=== PATIENT | female | born 1965 | race Caucasian/White ===

== ENCOUNTER 2016-08-17 10:14 | Emergency (ER) | payer MEDICAID, MEDICARE ==
[~2016-08-17] VITALS: Ht 162.6 cm; Wt 75.7 kg
[~2016-08-17 10:14] MED LIST: BISA10SU65 PR; DOXE50CA PO; HYDR50CA2 PO; NITR100C6 PO; OLAN5TAB9 PO; PANT40TA5 PO; POLY17PO5 PO; TRAZ50TA18 PO
[2016-08-17 11:30] LABS: BLOOD UREA NITROGEN 12 mg/dL (7-18)
[2016-08-17 11:34] LABS: ASPARTATE AMINO TRANSFERASE 12 U/L (15-37)
[2016-08-17 12:15] VITALS: BP 117/81
== END 2016-08-17 12:18 | disposition home or self-care (01) ==
LOC: ED 11:50
DX: R10.13 Epigastric pain (principal); F17.210 Nicotine dependence, cigarettes, uncomplicated; F31.9 Bipolar disorder, unspecified
CPT/HCPCS: 36415; 76700; 80053; 81001; 83690; 85025; 87086

== ENCOUNTER 2016-09-04 03:37 | Observation (INO) | payer MEDICARE ==
[~2016-09-04] VITALS: Ht 162.6 cm; Wt 71.0 kg
[2016-09-04 04:53] LABS: DAU SCREEN DISCLAIMER
[2016-09-04 05:09] LABS: ASPARTATE AMINO TRANSFERASE 17 U/L (15-37); BLOOD UREA NITROGEN 9 mg/dL (7-18)
[2016-09-04 05:12] LABS: ACETAMINOPHEN < 2 mcg/mL (10-30)
[2016-09-04] MEDS ORDERED: POTASSIUM CHLORIDE 20 MEQ TAB.ER.PRT PO ONE (07:00)
[2016-09-04] MEDS ORDERED: POTASSIUM CHLORIDE 20 MEQ TAB.ER.PRT ONE (07:20)
[2016-09-04] MEDS ORDERED: ONDANSETRON ODT 4 MG PO PRN (07:30)
[2016-09-04] MEDS ORDERED: POLYETHYLENE GLYCOL 17 GM PACKET PO PRN (07:30)
[2016-09-04] MEDS ORDERED: LORazepam 1MG TABLET PO PRN (07:30)
[2016-09-04] MEDS ORDERED: DOCUSATE 100 MG CAPSULE PO PRN (07:30)
[2016-09-04] MEDS ORDERED: BISACODYL 10 MG SUPP PR PRN (07:30)
[2016-09-04 07:45] VITALS: BP 107/71
[2016-09-04 10:17] LABS: HCG UR OBC PASS
[2016-09-04 10:19] LABS: PATH.CAST-FLAG NOT PRESENT; SPERM-FLAG NOT PRESENT; SRC-FLAG NOT PRESENT; XTAL-FLAG NOT PRESENT; YLC-FLAG NOT PRESENT
[2016-09-04] MEDS: ACETAMINOPHEN 325 MG TABLET PO PRN ×2 (11:21→21:13)
[2016-09-04] MEDS ORDERED: GUAIFENESIN/DM 200-20MG, 10ML UDC PO PRN (12:00)
[2016-09-04] MEDS: DOXYCYCLINE 100MG TABLET PO SCH ×2 (13:57→21:09)
[2016-09-04] MEDS: BENZONATATE 100 MG CAPSULE PO SCH ×3 (13:57→21:09)
[2016-09-04 19:54] VITALS: BP 101/64
[2016-09-04] MEDS ORDERED: OLANZAPINE 5 MG TABLET PO SCH (21:00)
[2016-09-05 08:20] VITALS: BP 100/66
[2016-09-05] MEDS: BENZONATATE 100 MG CAPSULE PO SCH (09:00)
[2016-09-05] MEDS ORDERED: CEFDINIR 300 MG CAPSULE PO SCH (09:00)
[2016-09-05] MEDS: DOXYCYCLINE 100MG TABLET PO SCH (09:00)
[2016-09-05] MEDS ORDERED: BENZ100C4 PO (12:51)
[2016-09-05] MEDS ORDERED: GUAI5SYR PO (12:51)
[2016-09-05] MEDS ORDERED: DOXY100T PO (12:51)
[2016-09-05] MEDS ORDERED: PRED20TA PO (12:51)
== END 2016-09-05 15:00 ==
LOC: SUATTDRO 06:53 → ED 06:54 → 3E 07:05
DX: F31.9 Bipolar disorder, unspecified (principal); R45.851 Suicidal ideations; E87.6 Hypokalemia; D72.829 Elevated white blood cell count, unspecified; N39.0 Urinary tract infection, site not specified; F41.1 Generalized anxiety disorder; G40.909 Epilepsy, unspecified, not intractable, without status epilepticus; K21.9 Gastro-esophageal reflux disease without esophagitis; J45.909 Unspecified asthma, uncomplicated; K58.9 Irritable bowel syndrome, unspecified; Z98.51 Tubal ligation status; Z82.49 Family history of ischemic heart disease and other diseases of the circulatory system; Z81.8 Family history of other mental and behavioral disorders
CPT/HCPCS: 36415; 71010; 80053; 80307; 80329; 81001; 81025; 83735; 84439; 84443; 85025; 87086; G0378; G0480

== ENCOUNTER 2016-11-12 22:00 | Emergency (ER) | payer MEDICARE ==
[~2016-11-12] VITALS: Ht 162.6 cm; Wt 77.3 kg
[~2016-11-12 22:00] MED LIST changes: +BENZ100C17 PO; +DOXY100T PO; +GUAI5SYR PO; +PRED20TA PO
[2016-11-12 22:14] VITALS: BP 129/80
[2016-11-13] MEDS ORDERED: HYDROcodone/APAP 5/325 TABLET PO ONE
[2016-11-13 00:01] LABS: HEMATOCRIT 40.9 % (34.6-47.8); HEMOGLOBIN 13.3 g/dL (11.7-16.4); WHITE BLOOD COUNT 10.2 x10^3/uL (3.4-10)
[2016-11-13 00:13] LABS: BLOOD UREA NITROGEN 13 mg/dL (7-18)
[2016-11-13 00:18] LABS: ASPARTATE AMINO TRANSFERASE 12 U/L (15-37)
[2016-11-13] MEDS ORDERED: HYDROcodone/APAP 5/325 TABLET ONE (00:40)
[2016-11-13] MEDS ORDERED: ONDANSETRON ODT 4 MG PO ONE (01:00)
[2016-11-13] MEDS ORDERED: ONDANSETRON ODT 4 MG ONE (01:03)
== END 2016-11-13 01:26 | disposition home or self-care (01) ==
LOC: ED 23:12
DX: R10.84 Generalized abdominal pain (principal); K21.9 Gastro-esophageal reflux disease without esophagitis; J45.909 Unspecified asthma, uncomplicated; F25.9 Schizoaffective disorder, unspecified; E73.9 Lactose intolerance, unspecified
CPT/HCPCS: 36415; 80053; 81003; 83690; 84703; 85025; 99284